=== PATIENT | female | born 1970 | race Caucasian/White ===

== ENCOUNTER 2016-12-01 17:30 | Emergency (ER) | payer MEDICAID, OTHER ==
[2016-12-01 20:11] VITALS: BP 144/101
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
== END 2016-12-01 21:00 | disposition left against medical advice (07) ==
LOC: ER 17:30
DX: Z53.9 Procedure and treatment not carried out, unspecified reason (principal); R52 Pain, unspecified; M54.2 Cervicalgia; M25.512 Pain in left shoulder; V87.7XXA Person injured in collision between other specified motor vehicles (traffic), initial encounter
CPT/HCPCS: 72125; 99281

== ENCOUNTER → 2017-01-08 | Outpatient (CLI) | payer OTHER ==
--- NOTE | 2017-01-08 17:33 | WOMENS IMAGING REPORT ---
EXAM DESCRIPTION: BILAT SCREENING MAMMO W/CAD COMPLETED DATE/TIME: 01/08/2017 10:49 am REASON FOR STUDY: ROUTINE SCREENING; Z12.31 Z12.31 ENCNTR SCREEN MAMMOGRAM FOR MALIGNANT NEOPLASM O F CHAIM COMPARISON: Baseline study TECHNIQUE: Standard craniocaudal and mediolateral oblique views of each breast recorded using digita l acquisition. LIMITATIONS: Artifact from bilateral nipple rings FINDINGS: No masses, calcifications or architectural distortion. No areas of suspicion. Read with the assistance of CAD. .[facility] - R2 Cenova Version 1.3 .[facility] - R2 Cenova Version 1.3 .[facility] - R2 Cenova Version 2.4 .[facility] [place] - R2 Cenova Version 2.4 .[facility] - R2 Linoleum Tile Layer Version 9.2 IMPRESSION: NORMAL MAMMOGRAM. BIRADS 1. BREAST DENSITY: b. There are scattered areas of fibroglandular density. BIRAD: 1 NEGATIVE RECOMMENDATION: ROUTINE SCREENING COMMENT: The patient has been notified of the results by letter per SA requirements. Additional no tification policies are in place for contacting patient with suspicious or incomplete findings. Quality ID #[id number]: The [employer] recommends an annual screening mammogram for women aged 40 years or over. This facility utilizes a reminder system to ensure that all patients receive reminder letters, and/or direct phone calls for appointments. This includes reminders for routine scr eening mammograms, diagnostic mammograms, or other Breast Imaging Interventions when appropriate. Th is patient will be placed in the appropriate reminder system. The [employer] (ACR) has developed recommendations for screening MRI of the breast s in certain patient populations, to be used in conjunction with mammography. Breast MRI surveillanc e may be appropriate for women with more than 20% lifetime risk of developing breast cancer as deter mined by genetic testing, significant family history of the disease, or history of mantle radiation f or Hodgkins Disease. ACR Practice Guidelines 2008. TECHNICAL DOCUMENTATION: FINDING NUMBER: (1) ASSESSMENT: (1) JOB ID: [id number] [employer]- All Rights Reserved
== END ==
LOC: WI 08:25
DX: Z12.31 Encounter for screening mammogram for malignant neoplasm of breast (principal)
CPT/HCPCS: 77067; G0202

== ENCOUNTER 2017-12-06 16:48 | Emergency (ER) | payer MEDICAID, OTHER ==
[2017-12-06] MEDS ORDERED: IBUPROFEN 600 MG TABLET PO ONE (18:55)
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
--- NOTE | 2017-12-06 19:32 | RADIOLOGY REPORT (SQ) ---
EXAM DESCRIPTION: KNEE RIGHT 4 VIEWS COMPLETED DATE/TIME: 12/06/2017 7:16 pm REASON FOR STUDY: Injury to knee on Saturday continued to have pain COMPARISON: 09/14/2014 NUMBER OF VIEWS: Four views. TECHNIQUE: AP, lateral, and both oblique radiographic images acquired of the right knee. LIMITATIONS: None. FINDINGS: MINERALIZATION: Normal. BONES: No acute fracture or dislocation. No worrisome bone lesions. JOINT: No effusion. SOFT TISSUES: No soft tissue swelling. No radio-opaque foreign body. OTHER: No other significant finding. IMPRESSION: NEGATIVE STUDY OF THE RIGHT KNEE. NO RADIOGRAPHIC EVIDENCE OF ACUTE INJURY. TECHNICAL DOCUMENTATION: JOB ID: [id number] [employer]- All Rights Reserved Reading location - IP/workstation name: [email or web address]
[2017-12-06 20:25] VITALS: BP 115/94
== END 2017-12-06 20:12 | disposition home or self-care (01) ==
LOC: ER 16:48
DX: M25.561 Pain in right knee (principal); W22.09XA Striking against other stationary object, initial encounter; Y92.009 Unspecified place in unspecified non-institutional (private) residence as the place of occurrence of the external cause; F17.210 Nicotine dependence, cigarettes, uncomplicated; E78.00 Pure hypercholesterolemia, unspecified; I10 Essential (primary) hypertension; Z86.73 Personal history of transient ischemic attack (TIA), and cerebral infarction without residual deficits; Z90.710 Acquired absence of both cervix and uterus
CPT/HCPCS: 99406; 99283; 73564; J3490

== ENCOUNTER → 2019-08-25 | Outpatient (CLI) | payer MEDICAID ==
--- NOTE | 2019-08-25 17:00 | RADIOLOGY REPORT (SQ) ---
EXAM DESCRIPTION: LUMBAR SPINE COMPLETE COMPLETED DATE/TIME: 08/25/2019 4:43 pm REASON FOR STUDY: ACUTE RIGHT SIDE LOW BACK PAIN WITH RIGHT SIDE SCIATICA AND RIGHT HIP PAIN M54.41 LUMBAGO WITH SCIATICA, RIGHT SIDE COMPARISON: None. NUMBER OF VIEWS: Five views including obliques. TECHNIQUE: AP, lateral, oblique, and sacral radiographic images acquired of the lumbar spine. LIMITATIONS: None. FINDINGS: MINERALIZATION: Normal. SEGMENTATION: Normal. No transitional anatomy. ALIGNMENT: Normal. VERTEBRAE: Maintained height. No fracture or worrisome bone lesion. DISCS: Mild disc space narrowing suggested mid-lower lumbar spine. Minimal anterior osteophytic spu rring. POSTERIOR ELEMENTS: Pedicles and facets are intact. No pars defect or posterior arch defects. HARDWARE: None in the spine. PARASPINAL SOFT TISSUES: Normal. PELVIS: Intact as visualized. No fractures or worrisome bone lesions. SI joints intact. OTHER: Atherosclerotic changes involving abdominal aorta. IMPRESSION: 1. Mild disc space narrowing suggested to involve the mid-lower lumbar spine. 2. No acute osseous findings. TECHNICAL DOCUMENTATION: JOB ID: [id number] [employer]- All Rights Reserved Reading location - IP/workstation name: [email or web address]
--- NOTE | 2019-08-26 10:17 | RADIOLOGY REPORT (SQ) ---
EXAM DESCRIPTION: HIP RIGHT AP/LATERAL COMPLETED DATE/TIME: 08/25/2019 4:43 pm REASON FOR STUDY: ACUTE RIGHT SIDE LOW BACK PAIN WITH RIGHT SIDE SCIATICA AND RIGHT HIP PAIN M54.41 LUMBAGO WITH SCIATICA, RIGHT SIDE COMPARISON: AP and lateral views of the right hip from 06/08/2015 NUMBER OF VIEWS: Two views. TECHNIQUE: AP pelvis and additional frog-leg view of the right hip. LIMITATIONS: None. FINDINGS: MINERALIZATION: Normal. RIGHT HIP: No fracture or dislocation. The femoroacetabular joint space is preserved. LEFT HIP: No fracture or dislocation. PUBIS AND ISCHIUM: The ilioischial and iliopectineal lines are intact. There is no diastasis of the pubic symphysis. PELVIS: No fracture. SACRUM: The sacrum is partially obscured by overlying bowel. LOWER LUMBAR SPINE: No acute findings. SOFT TISSUES: Surgical clips projecting within the left hemipelvis. OTHER: No other finding. IMPRESSION: No acute osseous abnormality of the right hip. TECHNICAL DOCUMENTATION: JOB ID: [id number]- All Rights Reserved Reading location - IP/workstation name: [email or web address]
== END ==
LOC: OD 16:20
PROVIDERS: ATTEND Family Medicine
DX: M54.41 Lumbago with sciatica, right side (principal); M25.551 Pain in right hip
CPT/HCPCS: 72110

== ENCOUNTER 2020-01-15 23:29 | Emergency (ER) | payer MEDICAID ==
--- NOTE | 2020-01-16 02:14 | RADIOLOGY REPORT (SQ) ---
EXAM DESCRIPTION: XR FOREARM 2 VIEWS COMPLETED DATE/TME: 01/16/2020 01:00 CLINICAL HISTORY: 49 years, Female, PAIN COMPARISON: None. NUMBER OF VIEWS: 2 TECHNIQUE: 2 views of the right forearm LIMITATIONS: None. FINDINGS: Negative for fracture or dislocation. Soft tissues are unremarkable IMPRESSION: Negative exam copyright 2010 [employer]- All Rights Reserved
--- NOTE | 2020-01-16 02:16 | RADIOLOGY REPORT (SQ) ---
EXAM DESCRIPTION: Right wrist [employer]Lex: XR WRIST 3 OR MORE VIEWS Views: 3 CLINICAL HISTORY: 49 years Female; PAIN ; fall on outstretched hand. Pain medial wrist. COMPARISON: None. FINDINGS: Negative for acute fracture, dislocation, or radiopaque foreign body. IMPRESSION: 1. No acute findings.
[2020-01-16] MEDS ORDERED: HYDROCODONE/ACETAMINOPHEN 5-325 MG TABLET PO ONE (08:23)
--- NOTE | 2020-01-16 08:32 | ER Document Report ---
ED Extremity Problem, Upper - General Chief Complaint: Arm Injury Stated Complaint: FALLRIGHT HAND WRIST INJURY Time Seen by Provider: 01/16/20 08:16 Primary Care Provider: MAYO CEBALLOS JR, DO [ACTIVE PROVISIONAL STAFF] - Follow up as needed SAMI FELDER DO [Primary Care Provider] - Follow up as needed Notes: CHIEF COMPLAINT: Right wrist pain HPI: 49-year-old female who is right-hand dominant presenting for right wrist pain after a mechanical fall last night. Patient was feeding her dogs and tripped falling backwards and landing with her arm and wrist outstretched. Complains of pain in the distal radial region. Denies elbow discomfort. Denies new numbness or tingling in the fingertips denies other injuries or complaints ROS: See HPI - all other systems were reviewed and are otherwise negative Constitutional: no fever Integumentary: no rash Allergy: no hives Musculoskeletal: + extremity pain or swelling Neurological: no new numbness/tingling, no weakness MEDICATIONS: I agree with the patient medications as charted by the RN. ALLERGIES: I agree with the allergies as charted by the RN. PAST MEDICAL HISTORY/PAST SURGICAL HISTORY: Reviewed and agree as charted by RN. SOCIAL HISTORY: Reviewed and agree as charted by RN. FAMILY HISTORY: No significant familial comorbid conditions directly related to patient complaint EXAM: Reviewed vital signs as charted by RN. CONSTITUTIONAL: Alert and oriented and responds appropriately to questions. Well-appearing; well-nourished, mild distress secondary to pain HEAD: Normocephalic; atraumatic EYES: conjunctivae clear, sclerae non-icteric ENT: normal nose; no rhinorrhea; moist mucous membranes NECK: Supple without meningismus; non-tender; no cervical lymphadenopathy, no masses CARD: Capillary refill less than 3 seconds; symmetric distal pulses RESP: Normal chest excursion without splinting or tachypnea ABD/GI: non-distended BACK: The back appears normal EXT: Normal ROM in all joints; no cyanosis, no effusions, no edema. There is soft tissue swelling in the distal radial region, tenderness in the snuffbox. Radial and ulnar pulses are present in the right wrist. Sensation is intact in the fingertips with capillary refill less than 3 seconds. Patient is able to flex and extend the fingers of the right hand as well as abduct the thumb with discomfort in the snuffbox region noted. No discomfort over the radial head of the right arm. SKIN: Normal color for age and race; warm; dry; good turgor; no acute lesions noted NEURO: Moves all extremities equally; Motor and sensory function intact PSYCH: The patient's mood and manner are appropriate. Grooming and personal hygiene are appropriate. MDM: 49-year-old female with injury to the right wrist in the snuffbox region. There is no visible fracture on x-ray on my review and radiology review. Given that she has snuffbox tenderness will place her in a thumb spica splint, refer to orthopedics for reevaluation of possible scaphoid injury TRAVEL OUTSIDE OF THE [place] IN LAST 30 DAYS: No - Related Data Allergies/Adverse Reactions: mushroom Allergy (Verified 12/06/17 16:51) bee stings Allergy (Uncoded 12/06/17 16:51) control Allergy (Uncoded 12/06/17 16:51) Past Medical History - Social History Smoking Status: Current Every Day Smoker Family History: None - Past Medical History Cardiac Medical History: Reports: Hx Hypercholesterolemia, Hx Hypertension Neurological Medical History: Reports: Hx Cerebrovascular Accident - from [facility] Endocrine Medical History: Reports: Hx Hypothyroidism Renal/ Medical History: Denies: Hx Peritoneal Dialysis GI Medical History: Reports: Hx Ulcer Musculoskeletal Medical History: Reports Hx Musculoskeletal Deformity, Reports Hx Musculoskeletal Trauma Psychiatric Medical History: Reports: Hx Bipolar Disorder, Hx Depression, Hx Personality Disorder Past Surgical History: Reports: Hx Section, Hx Hysterectomy, Hx Neurologic Surgery - Brain Sx for AVM in 1996 - Immunizations Immunizations up to date: No Hx Diphtheria, Pertussis, Tetanus Vaccination: - UNK Physical Exam - Vital signs Vitals: Temp Pulse Resp BP Pulse Ox 97.7 F 85 18 105/66 98 01/16/20 00:55 01/16/20 00:55 01/16/20 00:55 01/16/20 00:55 01/16/20 00:55 Course - Vital Signs Vital signs: Temp Pulse Resp BP Pulse Ox 99.1 F 84 18 121/75 97 01/16/20 05:36 01/16/20 05:36 01/16/20 05:36 01/16/20 05:36 01/16/20 05:36 Procedures - Immobilization Right Distal Wrist Time completed: 09:57 Pre-Proc Neuro Vasc Exam: Normal Immobilizer type: Thumb spica Performed by: PCT Post-Proc Neuro Vasc Exam: Normal, Unchanged from pre-exam Alignment checked and good: Yes Discharge - Discharge Clinical Impression: Wrist pain, right Fall Qualifiers: Encounter type: initial encounter Qualified Code(s): W19.XXXA - Unspecified fall, initial encounter Condition: Stable Disposition: HOME, SELF-CARE Instructions: Splint Precautions ([facility]) Additional Instructions: 1. splint for comfort 2. medicines for pain as prescribed, no driving on narcotics 3. ice the wrist three times daily for swelling for 10 minutes at a time, do not place ice directly on skin 4. follow up with orthopedics for further evaluation and treatment, call for appt. 5. There was not a definitive fracture noted on your x-ray today but this does not completely rule out a fracture given the location of your discomfort. It is very important that you follow-up with orthopedics for reevaluation within 1 to 2 weeks Prescriptions: Hydrocodone/Acetaminophen [Anna 5-325 mg Tablet] 1 tab PO Q4 PRN #10 tablet PRN Reason: Diclofenac Sodium [Voltaren 50 Mg Tablet.] 50 mg PO BID #20 tablet. Referrals: SAMI FELDER DO [Primary Care Provider] - Follow up as needed MAYO CEBALLOS JR, DO [ACTIVE PROVISIONAL STAFF] - Follow up as needed
[2020-01-16 10:14] VITALS: BP 117/84
== END 2020-01-16 10:13 | disposition home or self-care (01) ==
LOC: ER 23:29
DX: M25.531 Pain in right wrist (principal); W19.XXXA Unspecified fall, initial encounter; F17.200 Nicotine dependence, unspecified, uncomplicated; E78.00 Pure hypercholesterolemia, unspecified; I10 Essential (primary) hypertension
CPT/HCPCS: 99283

== ENCOUNTER 2020-04-18 18:24 | Emergency (ER) | payer MEDICAID ==
[2020-04-18] MEDS ORDERED: IBUPROFEN 600 MG TABLET PO ONE (19:12)
--- NOTE | 2020-04-18 19:14 | ER Document Report ---
HPI - HPI Time Seen by Provider: 04/18/20 19:02 Context: Patient is a 49-year-old female who presents emergency department with a chief complaint of right ankle pain. Patient states that she went to go stand up and her "ankle gave out" on her. She denies hitting her head. States that she has had problems with her right side due to a brain aneurysm that she had prior. Denies any head pain or nausea or vomiting. States this happened just prior to arrival. - ROS Systems Reviewed and Negative: Yes All other systems reviewed and negative - CONSTITUTIONAL Constitutional: DENIES: Fever, Chills - GASTROINTESTINAL Gastrointestinal: DENIES: Abdominal Pain, Nausea, Patient vomiting - REPRODUCTIVE Reproductive: DENIES: : - MUSCULOSKELETAL Musculoskeletal: REPORTS: Extremity pain - Right ankle, Swelling - Right ankle. DENIES: Back Pain, Neck Pain - DERM Skin Color: Normal Skin Problems: None Past Medical History - General Information source: Patient - Social History Smoking Status: Unknown if Ever Smoked Family History: None - Past Medical History Cardiac Medical History: Reports: Hx Hypercholesterolemia, Hx Hypertension Neurological Medical History: Reports: Hx Cerebrovascular Accident - from [facility] Endocrine Medical History: Reports: Hx Hypothyroidism Renal/ Medical History: Denies: Hx Peritoneal Dialysis GI Medical History: Reports: Hx Ulcer Musculoskeletal Medical History: Reports Hx Musculoskeletal Deformity, Reports Hx Musculoskeletal Trauma Psychiatric Medical History: Reports: Hx Bipolar Disorder, Hx Depression, Hx Personality Disorder Past Surgical History: Reports: Hx Section, Hx Hysterectomy, Hx Neurologic Surgery - Brain Sx for AVM in 1996 - Immunizations Immunizations up to date: No Hx Diphtheria, Pertussis, Tetanus Vaccination: - UNK Vertical Provider Document - CONSTITUTIONAL Agree With Documented VS: Yes Exam Limitations: No Limitations General Appearance: No Apparent Distress - INFECTION CONTROL TRAVEL OUTSIDE OF THE [place] IN LAST 30 DAYS: No - HEENT HEENT: Atraumatic, Normocephalic, PERRLA - NECK Neck: Normal Inspection - RESPIRATORY Respiratory: No Respiratory Distress - CARDIOVASCULAR Cardiovascular: Regular Rate, Regular Rhythm Pulses: Normal: Posterior tibial, Dorsalis pedis - MUSCULOSKELETAL/EXTREMETIES Musculoskeletal/Extremeties: Tender - right lateral ankle, Edema - right lateral ankle, Eccymosis - right lateral ankle - NEURO Level of Consciousness: Awake, Alert, Appropriate Motor/Sensory: No Motor Deficit, No Sensory Deficit - DERM Integumentary: Warm, Dry, No Rash Course - Re-evaluation Re-evalutation: 04/18/20 X-ray is negative for any acute fracture. Patient has some soft tissue swelli ng. Ice pack was placed to the patient's right ankle. Patient states that her ankle feels better after ice was placed to the area. Patient placed in ankle stirrup. Patient will follow-up with orthopedics as needed. Instructed patient on rest, ice, elevation, and compression. Capillary refill less than 3 seconds. Dorsalis pedis and posterior tibial pulses 2+. No vascular compromise noted. Fo llow-up precautions were given. Verbal discharge instructions were given to the patient. They verbalized understanding. They are stable for discharge. - Vital Signs Vital signs: Temp Pulse Resp BP Pulse Ox 97.5 F 102 H 20 149/90 H 96 04/18/20 18:39 04/18/20 18:39 04/18/20 18:39 04/18/20 18:39 04/18/20 18:39 Procedures - Immobilization Right Ankle Pre-Proc Neuro Vasc Exam: Normal Immobilizer type: Cedrick wrap, Ankle stirrup, Crutches Performed by: PCT Post-Proc Neuro Vasc Exam: Normal, Unchanged from pre-exam Alignment checked and good: Yes Discharge - Discharge Clinical Impression: Ankle sprain Qualifiers: Encounter type: initial encounter Involved ligament of ankle: unspecified ligament Laterality: right Qualified Code(s): S93.401A - Sprain of unspecified ligament of right ankle, initial encounter Condition: Stable Disposition: HOME, SELF-CARE Additional Instructions: Your x-ray does not show any acute fracture. You have a sprained ankle. Keep the area elevated, apply ice 20 minutes every 2 hours, and use crutches as needed. You should take ibuprofen 600 mg and acetaminophen 1000 mg every 6 hours as needed for pain. Please return if you have worsening pain and swelling, fever greater than 101, you notice spreading redness from the area, or have any other symptoms that are concerning to you. Please follow-up with orthopedic surgery if your symptoms have not improved in the next 2-3 weeks. Referrals: SAMI FELDER DO [Primary Care Provider] - Follow up in 3-5 days ZACH GREWAL MD [ACTIVE STAFF] - Follow up as needed
--- NOTE | 2020-04-18 20:19 | RADIOLOGY REPORT (SQ) ---
EXAM DESCRIPTION: XR ANKLE 3 OR MORE VIEWS COMPLETED DATE/TME: 04/18/2020 19:11 CLINICAL HISTORY: 49 years, Female, ankle pain;swelling COMPARISON: None. NUMBER OF VIEWS: 3 TECHNIQUE: 3 views of the right ankle were obtained LIMITATIONS: None. FINDINGS: There is significant soft tissue swelling about the lateral and anterior aspects of the ankle. No fracture is seen. There is no dislocation. There is an incidental, 3 mm plantar spur. There is no soft tissue gas or opaque foreign body. IMPRESSION: Soft tissue swelling. No fracture or dislocation. copyright 2010 [employer]- All Rights Reserved
[2020-04-18 20:54] VITALS: BP 145/86
== END 2020-04-18 20:57 | disposition home or self-care (01) ==
LOC: ER 18:24
DX: S93.401A Sprain of unspecified ligament of right ankle, initial encounter (principal); X58.XXXA Exposure to other specified factors, initial encounter; I10 Essential (primary) hypertension
CPT/HCPCS: 99283

== ENCOUNTER → 2020-07-26 | Outpatient (CLI) | payer MEDICAID ==
[2020-07-26 17:20] LABS: ABSOLUTE EOSINOPHILS # (AUTO) 0.1 10^3/uL (0.0-0.6); ABSOLUTE LYMPHOCYTES (AUTO) 1.8 10^3/uL (0.5-4.7); ABSOLUTE MONOCYTES (AUTO) 0.5 10^3/uL (0.1-1.4); ABSOLUTE NEUT (AUTO) 4.7 10^3/uL (1.7-8.2); BASOPHILS % (AUTO) 0.6 % (0-2); EOSINOPHILS % (AUTO) 1.5 % (0-6); HEMATOCRIT 42.4 % (36.0-47.0); HEMOGLOBIN 14.9 g/dL (12.0-15.5); LYMPHOCYTES % (AUTO) 25.5 % (13-45); MEAN CORPUSCULAR HEMOGLOBIN 31.6 pg (27.0-33.4); MEAN CORPUSCULAR HGB CONC 35.1 g/dL (32.0-36.0); MEAN CORPUSCULAR VOLUME 90 fl (80-97); MONOCYTES % (AUTO) 6.8 % (3-13); PLATELET COUNT 221 10^3/uL (150-450); RED CELL DISTRIBUTION WIDTH 14.4 % (11.5-14.0); SEGMENTED NEUTROPHILS % (AUTO) 65.6 % (42-78); TOTAL CELLS COUNTED % (AUTO) 100 %; WHITE BLOOD COUNT 7.1 10^3/uL (4.0-10.5)
[2020-07-26 17:39] LABS: ALBUMIN 4.6 g/dL (3.5-5.0); ALKALINE PHOSPHATASE 118 U/L (38-126); ANION GAP 8 (5-19); ASPARTATE AMINO TRANSFERASE 19 U/L (14-36); BILIRUBIN,DIRECT 0.4 mg/dL (0.0-0.4); BILIRUBIN,TOTAL 0.9 mg/dL (0.2-1.3); BLOOD UREA NITROGEN 19 mg/dL (7-20); CALCIUM 9.5 mg/dL (8.4-10.2); CARBON DIOXIDE 28 mmol/L (22-30); CHLORIDE 101 mmol/L (98-107); GLUCOSE 88 mg/dL (75-110); POTASSIUM 4.2 mmol/L (3.6-5.0); TOTAL PROTEIN 8.5 g/dL (6.3-8.2)
[2020-07-26 17:50] LABS: FREE T4 (FREE THYROXINE) 0.85 ng/dL (0.78-2.19)
[2020-07-26 18:04] LABS: THYROID STIMULATING HORMONE 1.77 uIU/mL (0.47-4.68)
[2020-07-27 13:32] LABS: CHOLESTEROL 205.66 mg/dL (0-200); TRIGLYCERIDES 87 mg/dL (<150)
[2020-07-27 13:43] LABS: DIRECT LDL 129 mg/dL (<100)
== END ==
LOC: OD 15:51
PROVIDERS: ATTEND Physician Assistant
DX: F33.2 Major depressive disorder, recurrent severe without psychotic features (principal); Z79.899 Other long term (current) drug therapy
CPT/HCPCS: 36415; 80053; 80061; 82652; 83036; 84439; 84443; 85025